=== PATIENT | female | born 1975 | race Caucasian/White ===

== ENCOUNTER 2021-12-03 14:30 | Emergency (ER) | payer MEDICAID, SELFPAY ==
[2021-12-03 15:22] VITALS: BP 117/77; PULSE 88; RESP 18; TEMP 37.1; O2SAT 98; BMI 24.2
[2021-12-03 15:28] VITALS: BP 117/77; PULSE 88; RESP 18; TEMP 37.1; O2SAT 98
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
== END 2021-12-03 15:30 | disposition home or self-care (01) ==
LOC: ER 15:12
PROVIDERS: Emergency Provider Nurse Practitioner Family
DX: G89.29 Other chronic pain (principal); M25.512 Pain in left shoulder; G56.02 Carpal tunnel syndrome, left upper limb
CPT/HCPCS: 99282

== ENCOUNTER → 2021-12-25 09:45 | Outpatient (BNVA) | payer MEDICAID, SELFPAY | PROVIDERS: Referring Provider Nurse Practitioner Family; Visit Provider Orthopaedic Surgery | DX: M25.512 Pain in left shoulder (principal) | CPT/HCPCS: 73000; 73030 ==

== ENCOUNTER → 2022-03-18 15:13 | Outpatient (BNVA) | payer MEDICAID, SELFPAY | PROVIDERS: Referring Provider Orthopaedic Surgery; Visit Provider Specialist | DX: G56.12 Other lesions of median nerve, left upper limb (principal) | CPT/HCPCS: 95908 ==

== ENCOUNTER 2023-05-01 15:05 | Outpatient (CLI) | payer MEDICAID, SELFPAY ==
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
--- NOTE | 2023-05-01 15:13 | XR_ITS ---
WS: [email or web address] EXAMINATION: XR lumbar spine 2-3V* [id number] L-SPINE : 2 views REASON FOR EXAM: G56.12 - Other lesions of median nerve, left upper limb COMPARISON: None available. ORDER DATE: 05/01/2023 3:12 PM FINDINGS: The lumbar vertebral bodies and the disc spaces are normal in width. In the lumbar vertebra, there i s no evidence of compression deformities or spondylolisthesis. There is increased lumbar lordosis XR/XR lumbar spine 2-3V* [id number] IMPRESSION: No acute change.
--- NOTE | 2023-05-01 15:13 | XR_ITS ---
WS: [email or web address] EXAMINATION: XR thoracic spine 3V* [id number] REASON FOR EXAM: G56.12 - Other lesions of median nerve, left upper limb COMPARISON: None available. ORDER DATE: 05/01/2023 3:12 PM FINDINGS: Only one view is submitted consisting of an AP view of the thoracic spine. There is generalized degen erative changes with mild disc narrowing. XR/XR thoracic spine 3V* [id number] IMPRESSION: Mild degenerative change.
--- NOTE | 2023-05-01 15:13 | XR_ITS ---
WS: [email or web address] EXAMINATION: XR ribs BI mn 4V w CXR1V [id number] REASON FOR EXAM: G56.12 - Other lesions of median nerve, left upper limb COMPARISON: None available. ORDER DATE: 05/01/2023 3:12 PM FINDINGS: There is a prominent defect in the posterior right third rib on the oblique view with an osseous brid ge perhaps posttraumatic or congenital between the first and second ribs. No acute rib fracture jonnie lomax XR/XR ribs BI mn 4V w CXR1V [id number] IMPRESSION: Deficiency and outline of the posterior right third rib, cannot further delinea te this defect with additional defects in the first and second ribs as describe d. Recommend CT imaging of the chest for further assessment
--- NOTE | 2023-05-01 15:13 | XR_ITS ---
WS: [email or web address] EXAMINATION: XR cervical spine 4-5V 70447 REASON FOR EXAM: G56.12 - Other lesions of median nerve, left upper limb COMPARISON: None available. FINDINGS: There is no sign of acute fracture or subluxation. There is normal mobility on flexion and extension views Vertebral body heights and intervertebral disc spaces are maintained. There is no prevertebral soft tissue change. XR/XR cervical spine 4-5V 18794 IMPRESSION: No acute osseous abnormality.
== END 2023-05-01 15:06 | disposition home or self-care (01) ==
PROVIDERS: Visit Provider Specialist
DX: G56.12 Other lesions of median nerve, left upper limb (principal); S22.39XA Fracture of one rib, unspecified side, initial encounter for closed fracture; G89.29 Other chronic pain; R51.9 Headache, unspecified; Q67.8 Other congenital deformities of chest; I65.23 Occlusion and stenosis of bilateral carotid arteries; X58.XXXA Exposure to other specified factors, initial encounter
CPT/HCPCS: 71111; 72050; 72072; 72100; 93880

== ENCOUNTER 2023-05-07 10:55 | Outpatient (CLI) | payer MEDICAID, SELFPAY ==
--- NOTE | 2023-05-07 11:00 | MR_ITS ---
WS: [email or web address] MRI HEAD WITH CONTRAST TECHNIQUE: Sagittal T1, T2 axial, T2 axial FLAIR, axial susceptibility weighted imaging, axial diffus ion weighted images, and coronal T2 images were obtained. Pre and post-T1 axial and post T1 coronal i mages. ADC and FSPGR images. CLINICAL INFORMATION: G56.12 - Other lesions of median nerve, left upper limb COMPARISON: None. FINDINGS: No evidence of restricted diffusion to suggest acute ischemia. Ventricular system and basilar cistern s are patent. Incidental hyperostosis frontalis. A few tiny foci of T2 hyperintensity in the frontal periventricular white matter of doubtful clinical significance but can be seen with migraine headache s. No significant parenchymal volume loss. No other suspicious intracranial signal abnormalities. Normal posterior fossa. Normal vascular flow voids at the skull base. Paranasal sinuses and mastoid a ir cells well aerated. Normal posterior nasopharynx and parapharyngeal fat. No hemosiderin on the carla ceptibly weighted images. Normal optic chiasm and pituitary infundibulum. Temporal lobes and hippocam pal formations are normal in appearance. Normal cavernous sinuses and Meckel's cave. No abnormal gadolinium enhancement. Normal visualized dural venous sinuses. No other suspicious findi ngs. MR/MR head wo/w con [id number] IMPRESSION: 1. No evidence of restricted diffusion to suggest acute ischemia. 2. No hemosiderin on susceptibly weighted images. 3. A few tiny foci of T2 hyperintensity in the frontal periventricular and sub cortical white matter of doubtful clinical significance but can be seen with mi graine headaches. 4. No other suspicious intracranial signal abnormalities. 5. No abnormal intracranial enhancement. 6. No other suspicious findings.
[2023-05-07] MEDS: gadobenate dimeglumine 20 mL vial IV (11:52)
== END 2023-05-07 10:56 | disposition home or self-care (01) ==
LOC: RAD 11:00
PROVIDERS: PCP Nurse Practitioner Family; Visit Provider Specialist
DX: G56.12 Other lesions of median nerve, left upper limb (principal); G89.29 Other chronic pain; Q67.8 Other congenital deformities of chest; R51.9 Headache, unspecified; R90.82 White matter disease, unspecified
CPT/HCPCS: 70553; A9577

== ENCOUNTER → 2023-06-26 11:20 | Outpatient (BNVA) | payer OTHER, SELFPAY | PROVIDERS: Referring Provider Psychiatry & Neurology Neurology; Visit Provider Physician Assistant | DX: M47.816 Spondylosis without myelopathy or radiculopathy, lumbar region; M54.41 Lumbago with sciatica, right side; M54.42 Lumbago with sciatica, left side | CPT/HCPCS: 72110 ==

== ENCOUNTER → 2023-08-19 10:39 | Outpatient (BNVA) | payer OTHER, MEDICAID, SELFPAY | PROVIDERS: Visit Provider Physician Assistant | DX: M54.41 Lumbago with sciatica, right side (principal); M54.42 Lumbago with sciatica, left side; G89.29 Other chronic pain; M47.816 Spondylosis without myelopathy or radiculopathy, lumbar region | CPT/HCPCS: 99213 ==

== ENCOUNTER → 2023-09-22 14:42 | Outpatient (BNVA) | payer MEDICAID, SELFPAY | PROVIDERS: Visit Provider Psychiatry & Neurology Neurology | DX: G44.309 Post-traumatic headache, unspecified, not intractable (principal); M62.541 Muscle wasting and atrophy, not elsewhere classified, right hand; R29.898 Other symptoms and signs involving the musculoskeletal system | CPT/HCPCS: 99212 ==

== ENCOUNTER 2023-10-07 13:39 | Outpatient (CLI) | payer MEDICAID, SELFPAY ==
--- NOTE | 2023-10-07 13:45 | MR_ITS ---
WS: [email or web address] MRI LUMBAR SPINE NONCONTRAST HISTORY: lower back pain COMPARISON: None available. TECHNIQUE: Sagittal and axial multisequence imaging is submitted. Very mild increase in the lumbar lordosis. No marrow edema or fracture. Very slight disc desiccation. Disc spaces and vertebral body heights are well-preserved. Conus terminates normally at L1-2 disc level. L1-L2: Mild ligamentum flavum and facet arthritis. L2-L3: Mild annular disc bulging. Moderate ligamentum flavum and facet arthritis. No high-grade steno sis. L3-L4: Mild ligamentum flavum and facet arthritis. No stenosis. L4-L5: Very mild annular disc bulging with moderate ligamentum flavum and facet joint arthritis. Mixe d signal mass with low signal border measuring 7 x 8 mm in the LEFT subarticular recess abuts the fac et joint and the LEFT lateral thecal sac and the traversing LEFT L5 nerve root. Very minimal foramina l stenosis. L5-S1: Tiny central disc protrusion. No stenosis. IMPRESSION: 1. Moderate facet joint arthritis at L4-5 with ligamentum flavum hypertrophy. 2. Well-circumscribed mixed signal mass LEFT subarticular recess at L4-5 which abuts the LEFT lateral thecal sac and also the facet joint. Soft tissue mass abuts the traversing LEFT L5 nerve root. This well-circumscribed mass measures 7 x 8 mm. Differential includes facet joint cyst, nerve sheath tumor or partially calcified disc fragment. This can be further evaluated if clinically thought necessary with follow-up MRI lumbar spine with contrast. 3. L5-S1, tiny central disc protrusion
== END 2023-10-07 13:40 | disposition home or self-care (01) ==
PROVIDERS: Visit Provider Physician Assistant
DX: M54.41 Lumbago with sciatica, right side (principal); M47.816 Spondylosis without myelopathy or radiculopathy, lumbar region; M79.9 Soft tissue disorder, unspecified; G89.29 Other chronic pain; M54.42 Lumbago with sciatica, left side; S39.012A Strain of muscle, fascia and tendon of lower back, initial encounter; X58.XXXA Exposure to other specified factors, initial encounter
CPT/HCPCS: 72148

== ENCOUNTER 2023-10-27 12:56 | Outpatient (CLI) | payer OTHER, MEDICAID, SELFPAY ==
--- NOTE | 2023-10-27 13:15 | US_ITS ---
WS: [email or web address] ULTRASOUND SOFT TISSUES posterior inferior back. HISTORY: PAIN IN LEFT GLUTEUS BUZZ COMPARISON: None available. TECHNIQUE: 2-D and color Doppler imaging is submitted. Ultrasound directed over the area of pain. There is no soft tissue abnormality identified. IMPRESSION: Negative soft tissue ultrasound lower back.
== END 2023-10-27 12:57 | disposition home or self-care (01) ==
LOC: RAD 12:57
PROVIDERS: Visit Provider Physician Assistant
DX: M54.41 Lumbago with sciatica, right side (principal); M54.42 Lumbago with sciatica, left side; G89.29 Other chronic pain
CPT/HCPCS: 76882

== ENCOUNTER 2023-10-29 10:27 | Outpatient (CLI) | payer MEDICAID, SELFPAY ==
--- NOTE | 2023-10-29 10:31 | MM_ITS ---
WS: [email or web address] BILATERAL SCREENING DIGITAL TOMOSYNTHESIS MAMMOGRAM WITH CAD HISTORY: Screening COMPARISON: None available. Bilateral CC and MLO views with tomosynthesis and synthetic mammography submitted. Computer aided det ection analyzed. Breast composition: There are scattered areas of fibroglandular density. No suspicious masses, microc alcifications or architectural distortion. IMPRESSION: MM/[place] [id number] BI-RADS: 1-Negative FOLLOW UP: 1 Year Follow-up
== END 2023-10-29 10:28 | disposition home or self-care (01) ==
LOC: RAD 10:27
PROVIDERS: Visit Provider Nurse Practitioner Family
DX: Z12.31 Encounter for screening mammogram for malignant neoplasm of breast (principal)
CPT/HCPCS: 77063; 77067

== ENCOUNTER 2023-12-18 06:50 | Day surgery (SDC) | payer MEDICAID, SELFPAY ==
--- NOTE | 2023-12-18 06:51 | W.PM.OPSFHP ---
Same Day Surgery H&P Indication for Procedure/HPI DATE OF PROCEDURE: December 18, 2023 CHIEF COMPLAINT/INDICATIONFOR SURGICAL PROCEDURE: need for screening colonoscopy PREOP DIAGNOSIS: need for screening colonoscopy PLANNED PROCEDURE: Operation Date: 12/18/23 07:50 [place] 11140 colon G0121 screen colon a risk Z12.11(Not Applicable) - Fco Moon MD Medications/Allergies* Home Medications Medication Instructions Recorded Confirmed Type docusate sodium 100 mg capsule 1 ea PO DAILY PRN Constipation 10/06/23 12/16/23 History ferrous fumarate 324 mg (106 mg 1 ea PO DAILY 10/06/23 12/16/23 History iron) tablet (Ferrocite) Lactobacillus acidophilus 10 10,000 mmu cells PO DAILY 12/16/23 12/16/23 History billion cell capsule (Probiotic) aripiprazole 5 mg tablet 5 mg PO DAILY 12/16/23 12/16/23 History berberine-herbal comb no.18 capsule 1 cap PO DAILY 12/16/23 12/16/23 History diindolylmethane 150 mg-broccoli 1 cap PO DAILY 12/16/23 12/16/23 History seed extract 30 mg capsule lisdexamfetamine 40 mg capsule 40 mg PO DAILY 12/16/23 12/16/23 History (Vyvanse) dmnsyemg-xbrdrbde-yhro 45 mg-folic 1 cap PO DAILY 12/16/23 12/16/23 History acid 800 mcg-vit K 120 mcg capsule (Bariatric Multivitamins) vilazodone 40 mg tablet 40 mg PO DAILY 12/16/23 12/16/23 History Allergies/Adverse Reactions Allergy/AdvReac Type Severity Reaction Status Date / Time Latex, Natural Rubber Allergy ALGY-Hives Verified 11/11/23 08:46 niacin Allergy ALGY-Redness Verified 11/11/23 08:46 of Skin Pertinent History/Comorbid Conditions* Medical History (Updated 09/22/23 @ 15:22 by Hola Wilde MD) Psychiatric care Social History Smoking and tobacco/nicotine status: never used tobacco/nicotine Alcohol intake: never Substance/Drug Use: never Pertinent Exam Findings alert, oriented x 3 and clear to auscultation bilaterally Recommendations Surgery/Procedure today Coding Level of Care Code Acute Code for Chg Fwd
[2023-12-18 07:06] VITALS: BP 126/71; PULSE 63; RESP 18; TEMP 36.3; O2SAT 98
[2023-12-18 07:08] VITALS: BMI 30.7
[2023-12-18] MEDS: sodium chloride 0.9% 1,000 ML 30 ML IV (07:16)
--- NOTE | 2023-12-18 07:56 | ANES.PREANE2 ---
Pre-Anesthetic Assessment Height/Weight: Height 1.65 m Weight 83.915 kg Temp Pulse Resp BP Pulse Ox O2 Del Method 97.4 F L 63 18 126/71 98 Room Air 12/18/23 07:06 12/18/23 07:06 12/18/23 07:06 12/18/23 07:06 12/18/23 07:06 12/18/23 07:06 Preop Diagnosis: need for screening colonoscopy Operation Date: 12/18/23 07:50 Proposed Procedures p 61285 colon G0121 screen colon a risk Z12.11(Not Applicable) - Fco Moon MD Was Beta Rishabh taken within 24 hours: N/A Was Clonidine taken within 24 hours: N/A Last intake: Intake Last Liquid Date 12/17/23 Last Liquid Time 23:30 Last Solid Date 12/16/23 Last Solid Time 20:00 Social No alcohol and No tobacco Exam alert, oriented x 3, clear to auscultation bilaterally and regular rate & rhythm Airway Submandibular: within normal limits Cervical ROM: within normal limits Mallampati: Class II Dentition: full History/ROS No significant history except as noted and No significant complaints CV/HEM None reported None reported Hepatic None reported GI Hx gastric bypass Metabolic None reported Neuropsych Anxiety and Depression Anesthetic Plan ASA status: 2 Anesthesia: Anesthesia Evaluation and MAC Risk of > 500 ml blood loss (7ml/kg in children): No Medications/Allergies Home Medications Medication Instructions Recorded Confirmed Last Taken Type docusate sodium 100 mg capsule 1 ea PO DAILY PRN Constipation 10/06/23 12/16/23 12/17/23 History ferrous fumarate 324 mg (106 mg 1 ea PO DAILY 10/06/23 12/16/23 12/17/23 History iron) tablet (Ferrocite) magnesium citrate 150 ml PO DAILY #296 mL 10/06/23 12/16/23 12/17/23 Rx Lactobacillus acidophilus 10 10,000 mmu cells PO DAILY 12/16/23 12/16/23 12/17/23 History billion cell capsule (Probiotic) aripiprazole 5 mg tablet 5 mg PO DAILY 12/16/23 12/16/23 12/17/23 History berberine-herbal comb no.18 capsule 1 cap PO DAILY 12/16/23 12/16/23 12/17/23 History diindolylmethane 150 mg-broccoli 1 cap PO DAILY 12/16/23 12/16/23 12/17/23 History seed extract 30 mg capsule lisdexamfetamine 40 mg capsule 40 mg PO DAILY 12/16/23 12/16/23 12/17/23 History (Vyvanse) itdqprts-gsmscdor-dmaq 45 mg-folic 1 cap PO DAILY 12/16/23 12/16/23 12/17/23 History acid 800 mcg-vit K 120 mcg capsule (Bariatric Multivitamins) vilazodone 40 mg tablet 40 mg PO DAILY 12/16/23 12/16/23 12/17/23 History Allergies Allergy/AdvReac Type Severity Reaction Status Date / Time Latex, Natural Rubber Allergy ALGY-Hives Verified 11/11/23 08:46 niacin Allergy ALGY-Redness Verified 11/11/23 08:46 of Skin Current Medications Generic Name Dose Route Start Last Admin Trade Name Freq PRN Reason Stop Dose Admin Sodium Chloride 1,000 mls @ 30 mls/hr 12/18/23 07:00 12/18/23 07:16 Sodium Chloride 0.9% IV 12/19/23 06:59 30 mls/hr .Q24H YOCASTA Administration PFSH Anesthesia Medical History Psychiatric care Social History Smoking and tobacco/nicotine status: never used tobacco/nicotine Alcohol intake: never Substance/Drug Use: never Female Reproductive History Date of last menstrual period: 12/17/23 Data Anesthesia Cardiac Studies: No Data to Display
[2023-12-18 08:44] VITALS: BP 102/62; PULSE 80; RESP 20; TEMP 36.2; O2SAT 93
[2023-12-18 09:00] VITALS: BP 106/69; PULSE 70; RESP 16; O2SAT 96
--- NOTE | 2023-12-18 14:13 | ANE.PACU2 ---
Inpatient post-anesthesia follow up: Vital signs: Temperature 97.1 F Pulse Rate 70 Respiratory Rate 16 Blood Pressure 106/69 Pulse Oximetry 96 Oxygen Delivery Me thod Room Air Oxygen Flow Rate Fraction of Inspir ed Oxygen Hydration adequate: Yes Nausea and vomiting: No Pain level: 1 Mental status: Baseline
[2023-12-22 07:13] LABS: OR HCG Qualitative Urine Negative (Negative)
== END 2023-12-18 09:14 | disposition home or self-care (01) ==
PROVIDERS: Anesthesiology; PCP Family Medicine; Visit Provider Surgery
PROC: 0DJD8ZZ Inspection of Lower Intestinal Tract, Via Natural or Artificial Opening Endoscopic (ICD-10-PCS; CPT 45378; principal; 2023-12-18 07:50)
DX: Z12.11 Encounter for screening for malignant neoplasm of colon (principal); Z98.84 Bariatric surgery status
CPT/HCPCS: 45378; 84703; J2704; J7030

== ENCOUNTER → 2024-02-04 14:47 | Outpatient (BNVA) | payer MEDICAID, SELFPAY | PROVIDERS: PCP Family Medicine; Visit Provider Nurse Practitioner | DX: G56.03 Carpal tunnel syndrome, bilateral upper limbs (principal); M65.341 Trigger finger, right ring finger | CPT/HCPCS: 73130 ==

== ENCOUNTER → 2024-02-12 13:47 | Outpatient (BNVA) | payer MEDICAID, SELFPAY | PROVIDERS: PCP Family Medicine; Visit Provider Anesthesiology Pain Medicine | DX: M54.16 Radiculopathy, lumbar region (principal); M54.41 Lumbago with sciatica, right side; M54.42 Lumbago with sciatica, left side; G89.29 Other chronic pain | CPT/HCPCS: 64483; 64484; J1100; J3490; J9999 ==

== ENCOUNTER 2024-03-09 10:46 | Outpatient (CLI) | payer MEDICAID, SELFPAY ==
--- NOTE | 2024-03-09 11:00 | MR_ITS ---
WS: [email or web address] MRI LUMBAR SPINE WITH AND WITHOUT CONTRAST HISTORY: M54.41 - Lumbago with sciatica, right side COMPARISON: 10/07/2023 TECHNIQUE: Sagittal and axial multisequence imaging is submitted. Postcontrast sequences 18 mL of IV MultiHance. Cervical thoracic curvature and scoliosis. Shallow LEFT foraminal disc protrusion at T9-10. No cord c ompression. Moderate increase in the lumbar lordosis. L4 anterolisthesis by 2 mm. Very slight anterior wedging an d Schmorl's node at T12. Mild anterior wedging of T11. No marrow edema. Disc spaces and vertebral body heights are well-preserved. Conus terminates normally at L1-2 disc level. L1-L2: Mild ligamentum flavum hypertrophy and facet arthritis. L2-L3: Mild annular disc bulging with ligamentum flavum and facet arthritis. No stenosis. L3-L4: Mild annular disc bulging with ligamentum flavum and facet arthritis. No stenosis. L4-L5: Diffuse mild annular disc bulging. Increasing ligamentum flavum and facet arthritis. Moderate to severe facet joint arthritis. 1.7 cm RIGHT facet joint cyst extends posterior from the facet joint into the paravertebral soft tissues. Facet joint cyst was noted on the LEFT encroaching upon the LEF T lateral thecal sac on the prior exam. This facet joint cyst has decreased in size but persists ronn uring 0.5 cm. Mild central, bilateral and foraminal stenosis. L5-S1: Mild annular disc bulging. Central disc protrusion. No significant contact on the S1 nerve niharika ts. Moderate facet joint arthritis and ligamentum flavum hypertrophy. Paravertebral soft tissues are normal. No discitis or osteomyelitis. Mild facet joint enhancement at L4-5. There is synovial enhancement surrounding the RIGHT facet joint cyst. Mild enhancement of the d ecreasing LEFT facet joint cyst. MR/MR lumbar spine wo/w con [id number] IMPRESSION: 1. L4-5: Moderate to severe facet joint osteoarthritis with advancement since the prior exam of 10/07/2023. Synovitis at the facet joints with enhancement. 2. L4-5 RIGHT facet joint cyst measures 1.7 cm. The smaller previously describ ed LEFT facet joint cyst is decreased slightly in size but persists contacting the LEFT lateral thecal sac. 3. No discitis or osteomyelitis. 4. L4-5: Mild central, bilateral subarticular recess and foraminal stenosis. 5. L5-S1: Small central disc protrusion. Moderate facet arthritis.
== END 2024-03-09 10:47 | disposition home or self-care (01) ==
LOC: RAD 10:46
PROVIDERS: PCP Family Medicine; Referring Provider Anesthesiology Pain Medicine; Visit Provider Anesthesiology Pain Medicine
DX: M54.41 Lumbago with sciatica, right side (principal); M54.42 Lumbago with sciatica, left side; G89.29 Other chronic pain; M47.816 Spondylosis without myelopathy or radiculopathy, lumbar region; M51.27 Other intervertebral disc displacement, lumbosacral region
CPT/HCPCS: 72158; A9577

== ENCOUNTER 2024-12-27 15:09 | Outpatient (CLI) | payer OTHER, SELFPAY ==
[2024-12-27 16:00] LABS: Bilirubin Urine Negative (Negative); Blood Urine 1+ (Negative); Glucose Urine UA Negative (Normal); Ketones Urine Negative (Negative); Leukocyte Esterase Urine Negative (Negative); Nitrate Urine Negative (Negative); Protein Urine Negative (Negative); Urine Appearance Clear (CLEAR); Urine Color Yellow (Yellow); Urobilinogen Urine 0.2 mg/dL (Negative); pH Urine 5.5 (5-7)
[2024-12-27 16:01] LABS: Basophils % 0.5 %; Eosinophils # 0.1 10^3/uL (0.0-0.8); Eosinophils % 0.9 %; Hematocrit 41.4 % (36-47); Lymphocytes # 1.6 10^3/uL (0.8-4.8); Lymphocytes % 28.2 %; Mean Corpuscular HGB Conc 31.9 g/dL (30-55); Mean Corpuscular Hemoglobin 29.3 pg (27-33); Mean Platelet Volume 8.7 fL (7.4-10.4); Monocytes # 0.8 10^3/uL (0.2-0.9); Monocytes % 14.3 %; Neutrophils # 3.17 10^3/uL (1.8-7.7); Neutrophils % 55.9 %; Nucleated Red Blood Cells % 0 %; Platelet Count 337 10^3/cmm (157-399); Red Cell Distribution Width 14.6 % (12.1-15.1); White Blood Count 5.67 10^3/uL (3.29-11.43)
[2024-12-27 16:03] LABS: Add Urine Microscopic? YES; Bacteria Urine None Seen /hpf; Hyaline Casts Urine 1.21 /lpf; RBC Urine 0-2 /hpf (0-2); Squamous Epithelial Cell Urine 0-5 /hpf (0-5); WBC Urine 0-5 /hpf (0-5)
[2024-12-27 16:18] LABS: Alanine Aminotransferase 14 U/L (0-33); Albumin Level 4.3 g/dL (3.5-5.2); Alkaline Phosphatase 82 U/L (35-105); Anion Gap 12.2 (5-19); Aspartate Amino Transferase 19 U/L (0-32); Blood Urea Nitrogen 13 mg/dL (6-20); Carbon Dioxide 26 mmol/L (22-29); Chloride 105 mmol/L (98-107); Globulin 2.7 g/dL (1.3-4.6); Glomerular Filtration Rate 106.3 mL/min (90-130); Glucose 63 mg/dL (65-115); Osmolality Calculated 288 mOsm/kg (285-295); Potassium 3.2 mmol/L (3.5-5.1); Sodium 140 mmol/L (136-145); Total Bilirubin 0.3 mg/dL (0.15-1.2)
== END 2024-12-27 15:10 | disposition home or self-care (01) ==
PROVIDERS: PCP Family Medicine; Visit Provider Family Medicine
DX: M54.9 Dorsalgia, unspecified (principal)
CPT/HCPCS: 36415; 80053; 81001; 85025